=== PATIENT | male | born 1990 | race African-American/Black ===

== ENCOUNTER 2017-04-23 13:09 | Emergency (ER) | payer OTHER ==
[~2017-04-23] VITALS: Ht 185.4 cm; Wt 72.6 kg
[~2017-04-23 13:09] MED LIST: IBUPROFEN600 MG ORAL; NORCO 5-325 TA1 EACH ORAL; TRAMADOL HCL50 MG ORAL
[2017-04-23 13:13] VITALS: BP 123/58
[2017-04-23] MEDS ORDERED: NKM (13:16)
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
[2017-04-23] MEDS ORDERED: BACTRIM-DS1 EA ORAL (13:55)
[2017-04-23] MEDS ORDERED: CEPHALEXIN500 MG ORAL (13:55)
[2017-04-23 14:10] VITALS: BP 156/68
== END 2017-04-23 14:14 | disposition home or self-care (01) ==
LOC: EMR 13:34
DX: S61.411A Laceration without foreign body of right hand, initial encounter (principal); W25.XXXA Contact with sharp glass, initial encounter; Y92.810 Car as the place of occurrence of the external cause
CPT/HCPCS: 99284